=== PATIENT | female | born 1995 | race Caucasian/White ===

== ENCOUNTER 2016-12-10 19:07 | Emergency (ER) | payer BC ==
[~2016-12-10] VITALS: Ht 162.6 cm; Wt 59.0 kg
[~2016-12-10 19:07] MED LIST: IBUP400T22 PO; ONDA4TAB8 PO
[2016-12-10 19:13] VITALS: Ht 162.6 cm; Wt 59.0 kg
[2016-12-10] MEDS ORDERED: IBUP-1542 PO (19:50)
[2016-12-10] MEDS ORDERED: PEN500 PO (19:50)
--- NOTE | 2016-12-10 19:54 | ERD ---
ER Documentation Chief Complaint Date/Time DATE: 12/10/16 TIME: 19:52 Chief Complaint sore throat x 2 days HPI 21-year-old female presents to emergency department for complaints of sore throat for 2 days, fever. Patient has been having sore throat, burning pain, 6/ 10 scale, is worse upon swallowing. Patient has been having fever, patient did not take any medications of symptoms. Patient denies any stridor or shortness of breath. Patient denies any dizziness. ROS All systems reviewed and are negative except as per history of present illness. Medications Home Meds Active Scripts Ibuprofen* (Motrin*) 600 Mg Tab, 600 MG PO Q6H Y for PAIN AND OR ELEVATED TEMP, #30 TAB Prov:GABRIELA ANDREWS NP 12/10/16 Penicillin V Potassium* (Penicillin V K*) 500 Mg Tab, 500 MG PO QID for 10 Days , TAB Prov:GABRIELA ANDREWS NP 12/10/16 Ibuprofen* (Motrin*) 400 Mg Tab, 400 MG PO Q6, #30 TAB Prov:LOVE DUARTE PA-C 03/18/16 Ibuprofen* (Motrin*) 400 Mg Tab, 400 MG PO Q6, #30 TAB Prov:LOVE DUARTE PA-C 09/19/15 Ondansetron Hcl* (Zofran*) 4 Mg Tablet, 4 MG PO Q6H for NAUSEA AND/OR VOMITING, #30 TAB Prov:LOVE DUARTE PA-C 09/19/15 Allergies Allergies: Coded Allergies: No Known Allergy (Unverified , 03/18/16) PMhx/Soc History of Surgery: No Anesthesia Reaction: No Hx Neurological Disorder: No Hx Respiratory Disorders: No Hx Cardiac Disorders: No Hx Psychiatric Problems: No Hx Miscellaneous Medical Probl: Yes (OVAR[facility] CYST ) Hx Alcohol Use: Yes (SOCIAL ) Hx Substance Use: No Hx Tobacco Use: No FmHx Family History: No coronary disease, No diabetes, No other Physical Exam Vitals Vital Signs Date Time Temp Pulse Resp B/P Pulse Ox O2 Delivery O2 Flow Rate FiO2 12/10/16 20:10 100.9 99 18 125/73 98 Room Air 12/10/16 19:13 102.5 119 20 136/85 98 Physical Exam GENERAL: The patient is well developed and appropriate for usual state of health, in no apparent distress. HEENT: Atraumatic. Ears: Normal tympanic membrane, no erythema or bulging. No ear canal swelling. No ear discharge. Nose: normal nasal turbinates, no erythema or swelling. Normal nasal discharge. Throat: oropharynx erythematous with tonsillar swelling and tonsillar exudates noted. No lymphadenopathy. CHEST: Clear to auscultation bilaterally. There are no rales, wheezes or rhonchi. HEART: Regular rate and rhythm. No murmurs, clicks, rubs or gallops. No S3 or S4. ABDOMEN: Soft, nontender and nondistended. Good bowel sounds. No rebound or guarding. No gross peritonitis. No gross organomegaly or masses. No Hastings sign or McBurney point tenderness. BACK: No midline or flank tenderness. EXTREMITIES: Equal pulses bilaterally. There is no peripheral clubbing, cyanosis or edema. No focal swelling or erythema. Full range of motion. Grossly neurovascularly intact. NEURO: Alert and oriented. Cranial nerves 2-12 intact. Motor strength in all 4 extremities with 5/5 strength. Sensation grossly intact. Normal speech and gait. SKIN: There is no apparent rash or petechia. The skin is warm and dry. HEMATOLOGIC AND LYMPHATIC: There is no evidence of excessive bruising or lymphedema. No gross cervical, axillary, or inguinal lymphadenopathy. Results 24 hrs Current Medications Medications (Trade) Dose Ordered Sig/Kassi Route PRN Reason Start Time Stop Time Status Last Admin Dose Admin Ibuprofen (Motrin) 600 mg ONCE ONCE PO 12/10/16 20:00 12/10/16 20:01 DC 12/10/16 20:03 Acetaminophen (Tylenol Tab) 650 mg ONCE ONCE PO 12/10/16 20:00 12/10/16 20:01 DC 12/10/16 20:03 Patient was given medicines for fever control here in the emergency department. After treatment, patient temperature improved and lower. Patient appears well and is hemodynamically stable. Procedures/MDM Medical decision making: Patient symptoms is likely consistent with acute bacterial pharyngitis, most likely strep throat. Low suspicion for peritonsillar abscess, mononucleosis, no symptoms of epiglottitis, laryngitis. No oral airway obstruction noted. No symptoms of sepsis at this time. Patient appears well and is hemodynamically stable. Patient was given for Penicillin VK , ibuprofen, is advised to follow-up with primary care doctor in 2-3 days for reevaluation of symptoms. Patient is advised to do salt water gargles. Patient is advised to return to emergency department for worsening symptoms. Disposition: Home. Stable. Departure Diagnosis: Primary Impression: Strep throat Condition: Stable Patient Instructions: Strep Throat GABRIELA ANDREWS NP Dec 10, 2016 19:54
[2016-12-10] MEDS ORDERED: IBUPROFEN 600 MG TAB PO ONE (20:00)
[2016-12-10] MEDS ORDERED: ACETAMINOPHEN 325 MG TAB PO ONE (20:00)
[2016-12-10 20:10] VITALS: BP 125/73; PULSE 99; RESP 18; TEMP 100.9
== END 2016-12-10 20:14 | disposition home or self-care (01) ==
LOC: FTE 19:07
DX: J02.0 Streptococcal pharyngitis (principal)
CPT/HCPCS: Z7502; Z7610; 99283

== ENCOUNTER 2017-09-04 18:21 | Emergency (ER) | END 2017-09-04 18:39 | disposition left against medical advice (07) ==

== ENCOUNTER 2017-09-04 22:50 | Emergency (ER) | END 2017-09-05 06:51 | disposition home or self-care (01) ==

== ENCOUNTER 2017-10-22 11:58 | Emergency (ER) | END 2017-10-22 14:51 | disposition home or self-care (01) ==